=== PATIENT | female | born 1995 | race Caucasian/White ===

== ENCOUNTER 2016-12-07 23:04 | Inpatient (IN) | payer OTHER ==
[~2016-12-07] VITALS: Ht 165.1 cm; Wt 82.6 kg
[2016-12-08] MEDS ORDERED: FERR325C PO (00:10)
[2016-12-08] MEDS ORDERED: PRENAT PO (00:10)
[2016-12-08 00:11] VITALS: Ht 165.1 cm; Wt 82.6 kg
[2016-12-08 00:12] VITALS: BP 125/73; PULSE 86; RESP 18
[2016-12-08] MEDS ORDERED: AMPICILLIN 2 GM/NS (PMX) 100 ML IV ONE (00:30)
[2016-12-08] MEDS ORDERED: MAGNESIUM SULFATE 4 GM/100 ML 100 ML IV ONE (00:30)
--- NOTE | 2016-12-08 01:25 | RADRPT ---
PROCEDURE: US OB. CLINICAL INDICATION: labor. TECHNIQUE: Multiple sonographic images of the pelvis were obtained. Transabdominal imaging only w as performed. The images were reviewed on a PACS workstation. COMPARISON: None. FINDINGS: Single live intrauterine is identified. Cardiac activity is present with 150 beats per mi nute. There is a vertex presentation. Measurements: BPD = 34 weeks 6 days. HC = 34 weeks 5 days. AC = 36 weeks 0 days. FL = 35 weeks 4 days. Estimated gestational age of approximately 35 weeks 2 days. The estimated date of delivery is 01/10/2017. The EFW = 2724 grams/ 6 pounds 0 ounces. The placenta is anterior. IMPRESSION: Single live intrauterine gestation of approximately 35 weeks 2 days. RPTAT: HMVK .Cy Razo MD, Date Time Electronically viewed and signed by .Cy Razo MD, on 12/08/2016 01:25 .K/
[2016-12-08] MEDS: LACTATED RINGER'S 1,000 ML IV SCH ×3 (01:30→20:34)
[2016-12-08 01:54] LABS: BASOPHILS % 0.3 % (0.0-2.0); EOSINOPHILS # 0.1 10^3/ul (0.0-0.5); HEMATOCRIT 33.2 % (37.0-47.0); HEMOGLOBIN 11.3 g/dl (12.0-16.0); LYMPHOCYTES # 2.5 10^3/ul (0.8-2.9); LYMPHOCYTES % 28.3 % (15.0-51.0); MEAN CORPUSCULAR VOLUME 91.2 fl (82.0-101.0); MEAN PLATELET VOLUME 9.4 fl (7.4-10.4); MONOCYTE # 0.6 10^3/ul (0.3-0.9); MONOCYTES % 7.2 % (0.0-11.0); NEUTROPHIL # 5.5 10^3/ul (1.6-7.5); NEUTROPHILS % 62.6 % (39.0-77.0); PLATELET COUNT 267 10^3/UL (140-415); RED BLOOD COUNT 3.64 10^6/ul (4.20-5.40); RED CELL DISTRIBUTION WIDTH 13.2 % (11.5-14.5); WHITE BLOOD COUNT 8.8 10^3/ul (4.8-10.8)
[2016-12-08] MEDS: BETAMET NA PHOS/AC(6 MG/ML) 5ML INJ IM SCH (02:03)
[2016-12-08 02:07] LABS: INR 0.96; PROTIME 12.8 Sec (12.2-14.2)
[2016-12-08 02:08] LABS: PARTIAL THROMBOPLASTIN TIME 30.9 Sec (25.0-35.0)
[2016-12-08] MEDS: MAGNESIUM SULFATE 20 GM/500 ML 500 ML IV SCH ×3 (02:34→20:33)
[2016-12-08] MEDS: AMPICILLIN 1 GM/NS (PMX) 50 ML IV SCH ×5 (05:35→22:12)
--- NOTE | 2016-12-08 06:30 | TRIAGE ---
OB Triage Datetime Report Generated by CPN: 12/08/2016 06:30 Datetime: 12/08/2016 06:06 Pain Assessment Pain Scale: 0 Pain Presence: None/Denies Pain Type: N/A Pain Goal: 0 Datetime: 12/08/2016 06:00 Labor Evaluation Frequency: N/A Monitor Mode: External Resting Tone [place]: Relaxed Contraction Comments: Uterine activity noted Monitor Mode: External US FHR Baseline Changes: No Baseline Change Variability: Moderate 6-25 bpm Accelerations: 15X15 Decelerations: None Category: Category I Datetime: 12/08/2016 05:00 Labor Evaluation Frequency: N/A Monitor Mode: External Resting Tone [place]: Relaxed Interventions: Side to Side Contraction Comments: Uterine activity noted Heart Rate FHR Baseline Rate: 135 Monitor Mode: External US FHR Baseline Changes: No Baseline Change Variability: Moderate 6-25 bpm Accelerations: 10X10 Decelerations: None Category: Category I Comments: Loss of FHR contact d/t pt self-repositioning Datetime: 12/08/2016 04:00 Labor Evaluation Frequency: N/A Monitor Mode: External Resting Tone [place]: Relaxed Contraction Comments: Uterine activity noted. Heart Rate FHR Baseline Rate: 135 Monitor Mode: External US FHR Baseline Changes: No Baseline Change Variability: Moderate 6-25 bpm Accelerations: 10X10 Decelerations: None Category: Category I Datetime: 12/08/2016 03:30 Assessment Type: Admission Assessment Maternal Assessment Level of Consciousness: Fully Conscious DTR's/Clonus: DTRs 2+; No Clonus Headache: Denies Blurred Vision: No Respiratory Effort: Unlabored; Regular Rhythm; Equal Expansion Breath Sounds, Left: Clear and Equal Breath Sounds, Right: Clear and Equal Nausea/Vomiting: Denies RUQ Epigastric Pain: Denies Lower Extremities Edema: None Degree: None Upper Extremities Edema: None Degree: None Facial Edema: None Fall Risk Assessment History of Falling: (0) No Secondary Diagnosis: (0) No Ambulatory Aid: (0) Bedrest/Nurse Assist IV Therapy: (20) Yes Gait: (0) Normal/Bedrest/Immobile Mental Status: (0) Oriented to Own Ability Fall Score: 20 Fall Risk Score Definition: No Risk: No action required Datetime: 12/08/2016 03:28 Temperature Route: Oral Pain Assessment Pain Scale: 0 Pain Presence: None/Denies Pain Type: N/A Pain Goal: 0 Pain Relief Measures: Comfort Measures Datetime: 12/08/2016 03:18 Stage of : OB Triage Labor Evaluation Frequency: x1 Monitor Mode: External Duration (sec)2399: 40 Quality: Mild Pattern: Normal: <= 5 Contractions in 10 Minutes Resting Tone [place]: Relaxed Heart Rate FHR Baseline Rate: 135 Monitor Mode: External US FHR Baseline Changes: No Baseline Change Variability: Moderate 6-25 bpm Accelerations: 15X15 Decelerations: None Category: Category I Datetime: 12/08/2016 03:00 Stage of : OB Triage Labor Evaluation Frequency: Irregular Monitor Mode: External Duration (sec)2399: 40-80 Quality: Mild Pattern: Normal: <= 5 Contractions in 10 Minutes Resting Tone [place]: Relaxed Heart Rate FHR Baseline Rate: 135 Monitor Mode: External US FHR Baseline Changes: No Baseline Change Variability: Moderate 6-25 bpm Accelerations: 15X15 Decelerations: None Category: Category I Datetime: 12/08/2016 02:56 Stage of : Antepartum Datetime: 12/08/2016 02:00 Stage of : OB Triage Labor Evaluation Frequency: 5-11 Monitor Mode: External Duration (sec)2399: 70-130 Quality: Mild Pattern: Normal: <= 5 Contractions in 10 Minutes Resting Tone [place]: Relaxed Heart Rate FHR Baseline Rate: 135 Monitor Mode: External US FHR Baseline Changes: No Baseline Change Variability: Moderate 6-25 bpm Accelerations: 15X15 Decelerations: Variable Category: Category II Datetime: 12/08/2016 01:00 Stage of : OB Triage Labor Evaluation Frequency: 2.5-6 Monitor Mode: External Duration (sec)2399: 40-120 Quality: Mild Pattern: Normal: <= 5 Contractions in 10 Minutes Resting Tone [place]: Relaxed Heart Rate FHR Baseline Rate: 135 Monitor Mode: External US Variability: Moderate 6-25 bpm Accelerations: 15X15 Decelerations: None Category: Category II Datetime: 12/08/2016 00:05 Stage of : OB Triage Datetime: 12/08/2016 00:00 Stage of : OB Triage Labor Evaluation Frequency: x4 Monitor Mode: External Duration (sec)2399: 50-80 Quality: Mild Pattern: Normal: <= 5 Contractions in 10 Minutes Resting Tone [place]: Relaxed Heart Rate FHR Baseline Rate: 150 Monitor Mode: External US Variability: Moderate 6-25 bpm Accelerations: 15X15 Decelerations: Variable Category: Category II Datetime: 12/07/2016 23:34 Stage of : OB Triage Vaginal Exam Dilatation (cms): 4.0 Effacement (%): 60 Station: -3 Exam By: CAREY [place] Membrane Status: Intact Vaginal Bleeding: None Cervix, Consistency: Moderate Cervix, Position: Posterior Presentation 'A': Cephalic Datetime: 12/07/2016 23:26 Time of Arrival: 12/08/2016 03:20 EGA: 35.6 Arrived By: Stretcher Arrived From: Other Unit in Hospital Datetime: 12/07/2016 23:25 Time of Arrival: 12/07/2016 22:59 Arrived By: Ambulatory Arrived From: Home Chief Complaint: UCs _ spotting Movement: Present Contractions: Irregular Time Contractions Began: 12/07/2016 17:00 Contractions: q7-15mins Rupture of Membranes: Denies Vaginal Bleeding: Small Vaginal Discharge: Present Recent Sexual Intercouse: Denies Abdominal Trauma: Not Applicable Patient Complaints: Contractions; Cramping; Back Pain Additional Patient Complaints: Pt reports having been in clinic on Monday. Pt states Dr.Delshad ahn ecked VE 2cm. Pt was instructed to come to hospital if uc's got stronger or pt experienced any bleed ing or leaking of fluid. Time Provider Notified: 12/08/2016 00:07 Provider Notified: Initial Plan: EFM x2, VE Datetime: 12/07/2016 23:24 Stage of : OB Triage Assessment Type: Triage Maternal Assessment Level of Consciousness: Fully Conscious DTR's/Clonus: DTRs 2+; No Clonus Headache: Temporal; Unilateral (Annotations: Right side) Blurred Vision: No Respiratory Effort: Unlabored; Regular Rhythm; Equal Expansion Breath Sounds, Left: Clear and Equal Breath Sounds, Right: Clear and Equal Nausea/Vomiting: Denies RUQ Epigastric Pain: Denies Lower Extremities Edema: None Degree: None Upper Extremities Edema: None Degree: None Facial Edema: None Temperature Route: Oral Fall Risk Assessment History of Falling: (0) No Secondary Diagnosis: (0) No Ambulatory Aid: (0) Bedrest/Nurse Assist IV Therapy: (0) No Gait: (0) Normal/Bedrest/Immobile Mental Status: (0) Oriented to Own Ability Fall Score: 0 Fall Risk Score Definition: No Risk: No action required Pain Assessment Pain Scale: 8 Pain Presence: Intermittent Pain Type: Cramping; Contraction Pain Location: Abdomen; Back Pain Relief Measures: Comfort Measures Datetime: 12/07/2016 23:22 Stage of : OB Triage Labor Evaluation Frequency: [place] applied Monitor Mode: External Monitor Mode: External US Comments: EFM applied Datetime: 12/07/2016 20:30 Stage of : Labor
[2016-12-08] MEDS ORDERED: PRENATAL VITAMIN PO SCH (09:00)
[2016-12-08] MEDS ORDERED: FERROUS SULFATE (EC) 325 MG TAB PO SCH (09:00)
[2016-12-09] MEDS: BETAMET NA PHOS/AC(6 MG/ML) 5ML INJ IM SCH (01:03)
== END 2016-12-09 01:39 | disposition left against medical advice (07) | DRG 778 ==
LOC: OBT 23:04 → L-D 23:05 → OBT 12-08 00:07 → L-D 12-08 00:07
PROVIDERS: ADMIT Obstetrics & Gynecology; ATTEND Obstetrics & Gynecology
DX: O60.03 Preterm labor without delivery, third trimester (principal); Z3A.35 35 weeks gestation of pregnancy
CPT/HCPCS: 36415; 76815; 83735; 85025; 85610; 85730; 86592; 86900; 86901; 87340; G0463; J0290; J0702; J3475; J7120

== ENCOUNTER 2016-12-30 22:23 | Outpatient (CLI) | payer OTHER ==
[~2016-12-30 22:23] MED LIST: FERR325C PO; PRENAT PO
--- NOTE | 2016-12-31 03:03 | TRIAGE ---
OB Triage Datetime Report Generated by CPN: 12/31/2016 03:02 Datetime: 12/31/2016 00:08 Heart Rate FHR Baseline Rate: 135 Monitor Mode: External US FHR Baseline Changes: No Baseline Change Variability: Moderate 6-25 bpm Accelerations: 15X15 Decelerations: Variable Category: Category II Datetime: 12/30/2016 23:50 Stage of : OB Triage Datetime: 12/30/2016 23:35 Stage of : OB Triage Datetime: 12/30/2016 23:07 Stage of : OB Triage Labor Evaluation Frequency: 3-9 Monitor Mode: External Quality: Moderate Pattern: Normal: <= 5 Contractions in 10 Minutes Resting Tone [place]: Relaxed Heart Rate FHR Baseline Rate: 130 Monitor Mode: External US Variability: Moderate 6-25 bpm Accelerations: 15X15 Decelerations: Early; Variable Category: Category II Vaginal Exam Dilatation (cms): 4.5 Effacement (%): 60 Station: -3 Exam By: Livan Garcia Membrane Status: Intact Vaginal Bleeding: None Cervix, Consistency: Soft Cervix, Position: Posterior Presentation 'A': Cephalic Datetime: 12/30/2016 22:34 Time of Arrival: 12/30/2016 22:20 EGA: 39.0 Arrived By: Ambulatory Arrived From: Home Chief Complaint: c/o ucs Movement: Present Contractions: Irregular Contractions: Q20 Rupture of Membranes: Denies Vaginal Bleeding: None Vaginal Discharge: Denies Recent Sexual Intercouse: Denies Abdominal Trauma: Not Applicable Patient Complaints: Contractions; Back Pain Time Provider Notified: 12/30/2016 23:35 Provider Notified: dR Pennington Initial Plan: EFM,SVE Datetime: 12/30/2016 22:32 Stage of : OB Triage Maternal Assessment Level of Consciousness: Fully Conscious Headache: Denies Blurred Vision: No Respiratory Effort: Unlabored Nausea/Vomiting: Denies RUQ Epigastric Pain: Denies Facial Edema: None Labor Evaluation Frequency: placed Monitor Mode: External Resting Tone [place]: Relaxed Monitor Mode: External US Comments: [id number] Pain Assessment Pain Scale: 10 Pain Presence: Intermittent Pain Type: Cramping Pain Location: Abdomen Datetime: 12/09/2016 01:39 Stage of : Antepartum Datetime: 12/09/2016 01:10 Assessment Type: Ongoing Assessment Datetime: 12/09/2016 01:00 Stage of : Antepartum Maternal Assessment Level of Consciousness: Fully Conscious DTR's/Clonus: DTRs 2+; No Clonus Headache: Denies Breath Sounds, Left: Clear and Equal Breath Sounds, Right: Clear and Equal Nausea/Vomiting: Denies RUQ Epigastric Pain: Denies Labor Evaluation Frequency: X0 Monitor Mode: External Duration (sec)2399: X0 Pattern: Normal: <= 5 Contractions in 10 Minutes Resting Tone [place]: Relaxed Heart Rate FHR Baseline Rate: 135 Monitor Mode: External US Variability: Moderate 6-25 bpm Accelerations: 15X15 Decelerations: None Category: Category I Pain Assessment Pain Scale: 0 Pain Presence: None/Denies Pain Type: N/A Datetime: 12/09/2016 00:00 Stage of : Antepartum Maternal Assessment Level of Consciousness: Fully Conscious DTR's/Clonus: DTRs 2+; No Clonus Headache: Denies Breath Sounds, Left: Clear and Equal Breath Sounds, Right: Clear and Equal Nausea/Vomiting: Denies RUQ Epigastric Pain: Denies Temperature Route: Oral Labor Evaluation Frequency: X0 Monitor Mode: External Duration (sec)2399: X0 Pattern: Normal: <= 5 Contractions in 10 Minutes Resting Tone [place]: Relaxed Heart Rate FHR Baseline Rate: 135 Monitor Mode: External US Variability: Moderate 6-25 bpm Accelerations: 15X15 Decelerations: None Category: Category I Pain Assessment Pain Scale: 0 Pain Presence: None/Denies Pain Type: N/A Datetime: 12/08/2016 23:34 Stage of : Antepartum Datetime: 12/08/2016 23:00 Stage of : Antepartum Labor Evaluation Frequency: x1 Monitor Mode: External Duration (sec)2399: 30 Pattern: Normal: <= 5 Contractions in 10 Minutes Resting Tone [place]: Relaxed Heart Rate FHR Baseline Rate: 130 Monitor Mode: External US Variability: Moderate 6-25 bpm Accelerations: 15X15 Decelerations: None Category: Category I Datetime: 12/08/2016 22:58 Monitor Mode: External Monitor Mode: External US Datetime: 12/08/2016 22:00 Stage of : Antepartum Maternal Assessment Level of Consciousness: Fully Conscious DTR's/Clonus: DTRs 2+; No Clonus Headache: Denies Breath Sounds, Left: Clear and Equal Breath Sounds, Right: Clear and Equal Nausea/Vomiting: Denies RUQ Epigastric Pain: Denies Labor Evaluation Frequency: X2 Monitor Mode: External Duration (sec)2399: 30-40 Pattern: Normal: <= 5 Contractions in 10 Minutes Heart Rate FHR Baseline Rate: 135 Monitor Mode: External US FHR Baseline Changes: No Baseline Change Variability: Moderate 6-25 bpm Accelerations: 15X15 Decelerations: None Category: Category I Datetime: 12/08/2016 21:00 Stage of : Antepartum Labor Evaluation Frequency: IRREGULAR Monitor Mode: External Duration (sec)2399: 30-40 Pattern: Normal: <= 5 Contractions in 10 Minutes Contraction Comments: MILD IRRITABILITY NOTED Heart Rate FHR Baseline Rate: 135 Monitor Mode: External US Variability: Moderate 6-25 bpm Accelerations: 15X15 Decelerations: None Category: Category I Datetime: 12/08/2016 20:12 Stage of : Antepartum Assessment Type: Ongoing Assessment Maternal Assessment Level of Consciousness: Fully Conscious DTR's/Clonus: DTRs 2+; No Clonus Headache: Denies Blurred Vision: No Respiratory Effort: Unlabored; Regular Rhythm; Equal Expansion Breath Sounds, Left: Clear and Equal Breath Sounds, Right: Clear and Equal Nausea/Vomiting: Denies RUQ Epigastric Pain: Denies Lower Extremities Edema: None Degree: None Upper Extremities Edema: None Degree: None Facial Edema: None Temperature Route: Oral Fall Risk Assessment History of Falling: (0) No Secondary Diagnosis: (0) No Ambulatory Aid: (0) Bedrest/Nurse Assist IV Therapy: (20) Yes (Annotations: IV INFUSING LR @75ML/HR AND 2 GRAMS MAGNESIUM SULFATE @50ML/HR) Gait: (0) Normal/Bedrest/Immobile Mental Status: (0) Oriented to Own Ability Fall Score: 20 Fall Risk Score Definition: No Risk: No action required Pain Assessment Pain Scale: 0 Pain Presence: None/Denies Pain Type: N/A Datetime: 12/08/2016 20:01 Stage of : Antepartum Labor Evaluation Frequency: IRREGULAR Monitor Mode: External Duration (sec)2399: 30-60 Pattern: Normal: <= 5 Contractions in 10 Minutes Contraction Comments: ABDOMEN SOFT ON PALPATION. IRRITABILITY NOTED Comments: LOC; PT MONITOR ADJUSTED Datetime: 12/08/2016 20:00 Monitor Mode: External Monitor Mode: External US Datetime: 12/08/2016 19:00 Labor Evaluation Frequency: 0 Monitor Mode: Internal Duration (sec)2399: 0 Pattern: Normal: <= 5 Contractions in 10 Minutes Resting Tone [place]: Relaxed Contraction Comments: DENIES FEELING ANY UC'S Heart Rate FHR Baseline Rate: 135 Monitor Mode: External US FHR Baseline Changes: No Baseline Change Variability: Moderate 6-25 bpm Accelerations: 15X15 Decelerations: None Category: Category I Datetime: 12/08/2016 18:29 Labor Evaluation Frequency: 0 Monitor Mode: External Duration (sec)2399: 0 Pattern: Normal: <= 5 Contractions in 10 Minutes Resting Tone [place]: Relaxed Heart Rate FHR Baseline Rate: 130 Monitor Mode: External US FHR Baseline Changes: No Baseline Change Variability: Moderate 6-25 bpm Accelerations: 15X15 Decelerations: None Category: Category I Datetime: 12/08/2016 18:00 Maternal Assessment Level of Consciousness: Fully Conscious DTR's/Clonus: DTRs 2+; No Clonus Headache: Denies Blurred Vision: No Nausea/Vomiting: Denies RUQ Epigastric Pain: Denies Facial Edema: None Labor Evaluation Frequency: 0 Monitor Mode: External Duration (sec)2399: 0 Pattern: Normal: <= 5 Contractions in 10 Minutes Resting Tone [place]: Relaxed Contraction Comments: DENIES FEELING ANY UC'S Heart Rate FHR Baseline Rate: 130 Monitor Mode: External US FHR Baseline Changes: No Baseline Change Variability: Moderate 6-25 bpm Accelerations: 15X15 Decelerations: None Category: Category I Pain Assessment Pain Scale: 0 Pain Presence: None/Denies Pain Type: N/A Datetime: 12/08/2016 17:02 Heart Rate FHR Baseline Rate: 135 Monitor Mode: External US FHR Baseline Changes: No Baseline Change Variability: Moderate 6-25 bpm Accelerations: 15X15 Decelerations: None Category: Category I Datetime: 12/08/2016 16:30 Labor Evaluation Frequency: 0 Monitor Mode: External Duration (sec)2399: 0 Pattern: Normal: <= 5 Contractions in 10 Minutes Resting Tone [place]: Relaxed Heart Rate FHR Baseline Rate: 135 Monitor Mode: External US FHR Baseline Changes: No Baseline Change Variability: Moderate 6-25 bpm Accelerations: 15X15 Decelerations: None Category: Category I Datetime: 12/08/2016 16:03 Labor Evaluation Frequency: 0 Monitor Mode: External Duration (sec)2399: 0 Pattern: Normal: <= 5 Contractions in 10 Minutes Resting Tone [place]: Relaxed Heart Rate FHR Baseline Rate: 135 Monitor Mode: External US FHR Baseline Changes: No Baseline Change Variability: Moderate 6-25 bpm Accelerations: 15X15 Decelerations: None Category: Category I Datetime: 12/08/2016 15:30 Labor Evaluation Frequency: 0 Monitor Mode: External Duration (sec)2399: 0 Pattern: Normal: <= 5 Contractions in 10 Minutes Resting Tone [place]: Relaxed Heart Rate FHR Baseline Rate: 135 Monitor Mode: External US FHR Baseline Changes: No Baseline Change Variability: Moderate 6-25 bpm Accelerations: 15X15 Decelerations: None Category: Category I Datetime: 12/08/2016 15:00 Maternal Assessment Level of Consciousness: Fully Conscious DTR's/Clonus: DTRs 2+; No Clonus Headache: Denies Blurred Vision: No Respiratory Effort: Unlabored Breath Sounds, Left: Clear and Equal Breath Sounds, Right: Clear and Equal Nausea/Vomiting: Denies RUQ Epigastric Pain: Denies Facial Edema: None Labor Evaluation Frequency: ONE NOTED Monitor Mode: External Duration (sec)2399: 50 Pattern: Normal: <= 5 Contractions in 10 Minutes Resting Tone [place]: Relaxed Heart Rate FHR Baseline Rate: 130 Monitor Mode: External US FHR Baseline Changes: No Baseline Change Variability: Moderate 6-25 bpm Accelerations: 15X15 Decelerations: None Category: Category I Datetime: 12/08/2016 13:57 Labor Evaluation Frequency: 0 Monitor Mode: External Duration (sec)2399: 0 Pattern: Normal: <= 5 Contractions in 10 Minutes Contraction Comments: PT DENIES FEELING ANY DISCOMFORT. SOME SCATTERED IRRITABILITY NOTED Comments: PT SITTING UP IN BED EATING LUNCH. Datetime: 12/08/2016 13:27 Labor Evaluation Frequency: 0 Monitor Mode: External Duration (sec)2399: 0 Pattern: Normal: <= 5 Contractions in 10 Minutes Resting Tone [place]: Relaxed Heart Rate FHR Baseline Rate: 130 Monitor Mode: External US FHR Baseline Changes: No Baseline Change Variability: Moderate 6-25 bpm Accelerations: 15X15 Decelerations: None Category: Category I Datetime: 12/08/2016 12:28 Labor Evaluation Frequency: 0 Duration (sec)2399: 0 Pattern: Normal: <= 5 Contractions in 10 Minutes Resting Tone [place]: Relaxed Heart Rate FHR Baseline Rate: 130 Monitor Mode: External US FHR Baseline Changes: Bradycardia Comments: PT STILL SLEEPING. Datetime: 12/08/2016 12:00 Labor Evaluation Frequency: 0 Monitor Mode: External Duration (sec)2399: 0 Heart Rate FHR Baseline Rate: 130 FHR Baseline Changes: No Baseline Change Comments: PT STILL ON LEFT SIDE SLEEPING Datetime: 12/08/2016 11:27 Labor Evaluation Frequency: 0 Monitor Mode: External Duration (sec)2399: 0 Pattern: Normal: <= 5 Contractions in 10 Minutes Resting Tone [place]: Relaxed Contraction Comments: DENIES FEELING ANY UC'S Heart Rate FHR Baseline Rate: 130 Monitor Mode: External US FHR Baseline Changes: No Baseline Change Variability: Moderate 6-25 bpm Accelerations: 15X15 Decelerations: None Category: Category I Comments: PT ON LEFT SIDE. 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 Datetime: 12/08/2016 10:59 Labor Evaluation Frequency: 0 Monitor Mode: External Duration (sec)2399: 0 Pattern: Normal: <= 5 Contractions in 10 Minutes Resting Tone [place]: Relaxed Contraction Comments: DENIES FEELING ANY UC'S Heart Rate FHR Baseline Rate: 130 Monitor Mode: External US FHR Baseline Changes: No Baseline Change Variability: Moderate 6-25 bpm Accelerations: 15X15 Decelerations: None Category: Category I Datetime: 12/08/2016 10:29 Labor Evaluation Frequency: 0 Monitor Mode: External Duration (sec)2399: 0 Pattern: Normal: <= 5 Contractions in 10 Minutes Resting Tone [place]: Relaxed Heart Rate FHR Baseline Rate: 130 Monitor Mode: External US FHR Baseline Changes: No Baseline Change Variability: Moderate 6-25 bpm Accelerations: 15X15 Decelerations: None Category: Category I Datetime: 12/08/2016 10:00 Maternal Assessment Level of Consciousness: Fully Conscious DTR's/Clonus: DTRs 2+; No Clonus Headache: Denies Blurred Vision: No Nausea/Vomiting: Denies RUQ Epigastric Pain: Denies Facial Edema: None Labor Evaluation Frequency: 0 Monitor Mode: External Pattern: Normal: <= 5 Contractions in 10 Minutes Intensity IUP (mmHg): 0 Resting Tone [place]: Relaxed Heart Rate FHR Baseline Rate: 130 Monitor Mode: External US FHR Baseline Changes: No Baseline Change Variability: Moderate 6-25 bpm Accelerations: 15X15 Decelerations: None Category: Category I Comments: SCATTERED CONTACT AT TIMES. PT IS STITTING UP EATING Datetime: 12/08/2016 09:30 Labor Evaluation Frequency: 0 Monitor Mode: External Duration (sec)2399: 0 Pattern: Normal: <= 5 Contractions in 10 Minutes Resting Tone [place]: Relaxed Heart Rate FHR Baseline Rate: 130 Monitor Mode: External US FHR Baseline Changes: No Baseline Change Variability: Moderate 6-25 bpm Accelerations: 15X15 Decelerations: None Category: Category I Datetime: 12/08/2016 09:01 Maternal Assessment Level of Consciousness: Fully Conscious DTR's/Clonus: DTRs 2+; No Clonus Headache: Denies Blurred Vision: No Nausea/Vomiting: Denies Facial Edema: None Labor Evaluation Frequency: 2 NOTED Monitor Mode: External Duration (sec)2399: 60-80 Pattern: Normal: <= 5 Contractions in 10 Minutes Resting Tone [place]: Relaxed Contraction Comments: DENIES FEELING ANY UC'S Heart Rate FHR Baseline Rate: 140 Monitor Mode: External US FHR Baseline Changes: No Baseline Change Variability: Moderate 6-25 bpm Accelerations: 15X15 Decelerations: None Category: Category I Datetime: 12/08/2016 08:30 Labor Evaluation Frequency: 0 Monitor Mode: External Duration (sec)2399: 0 Pattern: Normal: <= 5 Contractions in 10 Minutes Resting Tone [place]: Relaxed Contraction Comments: DENIES FEELING ANY UC'S Heart Rate FHR Baseline Rate: 140 Monitor Mode: External US FHR Baseline Changes: No Baseline Change Accelerations: 15X15 Decelerations: None Category: Category I Datetime: 12/08/2016 07:59 Labor Evaluation Frequency: 0 Monitor Mode: External Duration (sec)2399: 0 Resting Tone [place]: Relaxed Contraction Comments: DENIES FEELING ANY UC'S. ABODMEN SOFT TO PALPATION Heart Rate FHR Baseline Rate: 135 FHR Baseline Changes: No Baseline Change Variability: Moderate 6-25 bpm Accelerations: 15X15 Decelerations: None Category: Category I Pain Assessment Pain Scale: 0 Pain Presence: None/Denies Pain Type: N/A Pain Goal: 0 Datetime: 12/08/2016 07:56 Assessment Type: Ongoing Assessment Maternal Assessment Level of Consciousness: Fully Conscious DTR's/Clonus: DTRs 2+; No Clonus Headache: Denies Blurred Vision: No Respiratory Effort: Unlabored; Regular Rhythm; Equal Expansion Breath Sounds, Left: Clear and Equal Breath Sounds, Right: Clear and Equal Nausea/Vomiting: Denies RUQ Epigastric Pain: Denies Lower Extremities Edema: None Degree: None Upper Extremities Edema: None Degree: None Facial Edema: None Fall Risk Assessment History of Falling: (0) No Secondary Diagnosis: (0) No Ambulatory Aid: (0) Bedrest/Nurse Assist IV Therapy: (20) Yes Gait: (0) Normal/Bedrest/Immobile Mental Status: (0) Oriented to Own Ability Fall Score: 20 Fall Risk Score Definition: No Risk: No action required Datetime: 12/08/2016 07:00 Labor Evaluation Frequency: N/A Monitor Mode: External Resting Tone [place]: Relaxed Contraction Comments: Uterine activity noted Heart Rate FHR Baseline Rate: 135 Monitor Mode: External US FHR Baseline Changes: No Baseline Change Variability: Moderate 6-25 bpm Accelerations: 15X15 Decelerations: None Datetime: 12/08/2016 06:19 Comments: Periods of loss of FHR contact d/t pt self repositioning Datetime: 12/08/2016 06:00 Heart Rate FHR Baseline Rate: 135 Datetime: 12/08/2016 05:27 Pain Assessment Pain Scale: 0 Pain Presence: None/Denies Pain Type: N/A Pain Goal: 0 Datetime: 12/08/2016 04:27 Pain Assessment Pain Scale: 0 Pain Presence: None/Denies Pain Type: N/A Pain Goal: 0 Pain Assessment Comments: Pt states she feels occasional sharp pain d/t positioning. Pt instructed to inform RN if pain reoccurs, pt verbalized understanding Datetime: 12/08/2016 03:30 Fall Score: 20 Fall Risk Score Definition: No Risk: No action required Datetime: 12/08/2016 02:39 Heart Rate FHR Baseline Rate: 140 Datetime: 12/07/2016 23:26 EGA: 35.6 Datetime: 12/07/2016 23:24 Fall Score: 0 Fall Risk Score Definition: No Risk: No action required
--- NOTE | 2017-01-25 20:13 | QN ---
Documentation Comment Date of Service 12/31/2016 Diagnosis: TRU Norman MD Jan 25, 2017 20:13
== END 2016-12-31 00:21 | disposition left against medical advice (07) ==
LOC: OBT 22:23 → L-D 22:24 → OBT 12-31 00:21
PROVIDERS: ATTEND Obstetrics & Gynecology
DX: O62.9 Abnormality of forces of labor, unspecified (principal); Z3A.35 35 weeks gestation of pregnancy
CPT/HCPCS: G0463

== ENCOUNTER 2017-01-01 05:36 | Inpatient (IN) | payer OTHER ==
[~2017-01-01] VITALS: Ht 165.1 cm; Wt 84.9 kg
[2017-01-01 05:47] VITALS: BP 119/74; PULSE 76; RESP 18
[2017-01-01] MEDS ORDERED: BUTORPHANOL 2 MG INJ IV PRN (06:30)
[2017-01-01] MEDS ORDERED: METHYLERGONOVINE 0.2 MG INJ IM PRN ×2 (06:30→18:30)
[2017-01-01] MEDS ORDERED: OXYTOCIN 30 UNITS/LR 500 ML IV PRN ×2 (06:30→18:30)
[2017-01-01] MEDS ORDERED: MISOPROSTOL 200 MCG TAB PR PRN ×2 (06:30→18:30)
[2017-01-01] MEDS ORDERED: IBUPROFEN 600 MG TAB PO PRN (06:30)
[2017-01-01] MEDS ORDERED: CARBOPROST 250 MCG INJ IM PRN ×2 (06:30→18:30)
[2017-01-01] MEDS ORDERED: OXYTOCIN 30 UNITS/LR 500 ML IV SCH ×3 (06:30→07:00)
[2017-01-01] MEDS ORDERED: LIDOCAINE 1% (MPF) 30 ML INJ INJ PRN (06:30)
--- NOTE | 2017-01-01 06:42 | TRIAGE ---
OB Triage Datetime Report Generated by CPN: 01/01/2017 06:42 Datetime: 01/01/2017 06:20 Stage of : OB Triage Datetime: 01/01/2017 06:17 Frequency: 20 Monitor Mode: External Quality: Moderate Pattern: Normal: <= 5 Contractions in 10 Minutes Resting Tone [place]: Relaxed FHR Baseline Rate: 140 Monitor Mode: External US Variability: Moderate 6-25 bpm Accelerations: 10X10 Decelerations: Variable Category: Category II Dilatation (cms): 5.0 Effacement (%): 50 Station: -3 Exam By: Livan Garcia Membrane Status: Intact Vaginal Bleeding: Scant Cervix, Consistency: Soft Cervix, Position: Posterior Presentation 'A': Cephalic Datetime: 01/01/2017 05:45 Time of Arrival: 01/01/2017 05:35 EGA: 39.2 Arrived By: Ambulatory Arrived From: Home Chief Complaint: c/o ucs Movement: Present Contractions: Regular Time Contractions Began: 01/01/2017 00:00 Contractions: q20 Rupture of Membranes: Denies Vaginal Bleeding: None Vaginal Discharge: Denies Recent Sexual Intercouse: Denies Abdominal Trauma: Not Applicable Patient Complaints: Contractions Time Provider Notified: 01/01/2017 06:32 Provider Notified: Dr Flaherty Initial Plan: EFM,SVE Datetime: 01/01/2017 05:42 Stage of : OB Triage Level of Consciousness: Fully Conscious Headache: Denies Blurred Vision: No Respiratory Effort: Unlabored Nausea/Vomiting: Denies RUQ Epigastric Pain: Denies Facial Edema: None Frequency: placed Monitor Mode: External Resting Tone [place]: Relaxed Monitor Mode: External US Comments: FHT 135 Pain Scale: 9 Pain Presence: Intermittent Pain Type: Contraction Pain Location: Abdomen Datetime: 12/30/2016 22:34 EGA: 39.0 Datetime: 12/08/2016 20:12 Fall Score: 20 Fall Risk Score Definition: No Risk: No action required Datetime: 12/08/2016 07:56 Fall Score: 20 Fall Risk Score Definition: No Risk: No action required Datetime: 12/08/2016 03:30 Fall Score: 20 Fall Risk Score Definition: No Risk: No action required Datetime: 12/07/2016 23:26 EGA: 35.6
[2017-01-01] MEDS: LACTATED RINGER'S 1,000 ML IV SCH ×2 (06:59→12:04)
[2017-01-01 07:20] LABS: BASOPHILS % 0.4 % (0.0-2.0); EOSINOPHILS # 0.1 10^3/ul (0.0-0.5); EOSINOPHILS % 1.8 % (0.0-7.0); HEMATOCRIT 36.8 % (37.0-47.0); HEMOGLOBIN 12.3 g/dl (12.0-16.0); LYMPHOCYTES # 2.3 10^3/ul (0.8-2.9); LYMPHOCYTES % 34.5 % (15.0-51.0); MEAN CORPUSCULAR HEMOGLOBIN 31.5 pg (29.0-33.0); MEAN CORPUSCULAR HGB CONC 33.4 g/dl (32.0-37.0); MEAN CORPUSCULAR VOLUME 94.4 fl (82.0-101.0); MEAN PLATELET VOLUME 9.7 fl (7.4-10.4); MONOCYTE # 0.4 10^3/ul (0.3-0.9); MONOCYTES % 6.5 % (0.0-11.0); NEUTROPHIL # 3.8 10^3/ul (1.6-7.5); NEUTROPHILS % 56.2 % (39.0-77.0); PLATELET COUNT 269 10^3/UL (140-415); RED CELL DISTRIBUTION WIDTH 13.3 % (11.5-14.5); WHITE BLOOD COUNT 6.8 10^3/ul (4.8-10.8)
[2017-01-01 07:42] LABS: INR 0.89; PT RATIO 0.9
[2017-01-01 07:43] LABS: PARTIAL THROMBOPLASTIN TIME 32.3 Sec (25.0-35.0)
[2017-01-01] MEDS ORDERED: LACTATED RINGER'S 1,000 ML IV PRN (08:00)
[2017-01-01] MEDS ORDERED: FENTAnyl 2MCG/ML-ROPIV 0.2% 100 ML ONE (12:19)
--- NOTE | 2017-01-01 14:04 | HP ---
Date/Time of Note Date/Time of Note DATE: 01/01/17 TIME: 14:03 OB - History Hx of Present Chief Complaint: contractions Estimated Due Date: Jan 06, 2017 : 2 Para: 1 Spontaneous : 0 Therapeutic : 0 Care: Good Care Ultrasounds: Normal mid trimester US Obstetrical Complications: None Medical Complications: None Past Family/Social History * Past Medical, Surgical, Family and Obstetric Histories reviewed from chart. GBS Status: Negative OB Admission Exam Vital Signs Vital Signs Vital Signs Date Time Temp Pulse Resp B/P Pulse Ox O2 Delivery O2 Flow Rate FiO2 01/01/17 05:47 97.7 76 18 119/74 Room Air Physical Exam HEENT: WNL Heart: Rhythm Normal Lungs: Clear, Equal Abdomen: WNL Extremities: Normal Reflexes: Normal Cervical Dilatation: 5cm Effacement: 50% Station: -1 Membranes: Intact Heart Rate: 130's Accelerations: Accelerations Present Decelerations: No Decelerations Varibility: Moderate Last 72 hours Lab Results CBC & BMP 01/01/17 06:43 OB Assessment/Plan Reason for admission: active labor Plan: Expectant Management TRU CLEARY MD Jan 01, 2017 14:04
--- NOTE | 2017-01-01 14:07 | LDN ---
Date/Time of Note Date/Time of Note DATE: 01/01/17 TIME: 14:05 Delivery Summary Weeks of Gestation 39 weeks and 2 days Placenta Delivered: Spontaneously Meconium: none Episiotomy: No Perineal laceration: 0 Anesthesia type: Epidural Estimated blood loss: 100 Sponge & Needle done & correct: Yes All needle counts correct: Yes Any foreign bodies felt in the: No Problems: Infant Delivery Information Sex Sex: female Apgars 1 Minute: 9 5 Minute: 9 Suctioning Nose & mouth suctioned at jamie: Yes Delee suction performed: No Umbilical Cord Umbilical cord with: 3 Vessels Cord presentations: nuchal cord Nuchal cord present X: 1 Cord Blood was obtained: Yes Mother & Baby Disposition Disposition Mom & Baby to Maternity; Good: Yes TRU CLEARY MD Jan 01, 2017 14:06
[2017-01-01 18:00] VITALS: BP 114/63; PULSE 84; RESP 18
[2017-01-01] MEDS ORDERED: DIBUCAINE 1% 30 GM OINT PR PRN (18:30)
[2017-01-01] MEDS ORDERED: HYDROCODONE/APAP (5/325) TAB PO PRN (18:30)
[2017-01-01] MEDS ORDERED: WITCH HAZEL/GLYCERIN PAD PR PRN (18:30)
[2017-01-01] MEDS ORDERED: ACETAMINOPHEN 325 MG TAB PO PRN (18:30)
[2017-01-01] MEDS ORDERED: BENZOCAINE 20% 56 ML SPRAY TOP PRN (18:30)
[2017-01-01] MEDS ORDERED: LANOLIN 7 GM TUBE TOP PRN (18:30)
[2017-01-01 20:30] VITALS: BP 113/77; PULSE 67; RESP 16
[2017-01-01] MEDS: SENNA/DOCUSATE NA (8.6MG/50MG) TAB PO SCH (20:43)
[2017-01-01] MEDS ORDERED: INFLUENZA VIRUS VACCINE 0.5 ML SYG IM* ONE (21:30)
[2017-01-01] MEDS: LACTATED RINGER'S 1,000 ML IV* SCH (23:03)
[2017-01-02] MEDS: IBUPROFEN 600 MG TAB PO SCH ×4 (00:15→17:54)
[2017-01-02 00:32] VITALS: BP 112/78; PULSE 74; RESP 18
[2017-01-02] MEDS: LACTATED RINGER'S 1,000 ML IV* SCH ×3 (02:12→10:12)
[2017-01-02 04:00] VITALS: BP 116/76; PULSE 75; RESP 18
[2017-01-02] MEDS: SENNA/DOCUSATE NA (8.6MG/50MG) TAB PO SCH ×2 (08:50→20:59)
[2017-01-02 09:00] VITALS: BP 122/84; PULSE 74; RESP 17
[2017-01-02 10:31] LABS: BASOPHILS % 0.4 % (0.0-2.0); EOSINOPHILS # 0.1 10^3/ul (0.0-0.5); EOSINOPHILS % 1.3 % (0.0-7.0); HEMATOCRIT 37.8 % (37.0-47.0); HEMOGLOBIN 12.5 g/dl (12.0-16.0); LYMPHOCYTES % 19.6 % (15.0-51.0); MEAN CORPUSCULAR HEMOGLOBIN 31.3 pg (29.0-33.0); MEAN CORPUSCULAR HGB CONC 33.1 g/dl (32.0-37.0); MEAN CORPUSCULAR VOLUME 94.7 fl (82.0-101.0); MEAN PLATELET VOLUME 9.6 fl (7.4-10.4); MONOCYTE # 0.7 10^3/ul (0.3-0.9); NEUTROPHIL # 7.1 10^3/ul (1.6-7.5); NEUTROPHILS % 71.2 % (39.0-77.0); PLATELET COUNT 268 10^3/UL (140-415); RED BLOOD COUNT 3.99 10^6/ul (4.20-5.40); RED CELL DISTRIBUTION WIDTH 13.5 % (11.5-14.5)
[2017-01-02 12:00] VITALS: BP 107/69; PULSE 66; RESP 18
[2017-01-02 16:02] VITALS: BP 120/66; PULSE 62; RESP 16
--- NOTE | 2017-01-02 18:49 | DS ---
Date/Time of Note Date/Time of Note DATE: 01/02/17 TIME: 18:48 Obstetrical Discharge Record Final Diagnosis Final Diagnosis: Term delivered Vaginal Delivery Obstetrical Delivery: Spontaneous Condition on Discharge Physical Assessment Voiding: Yes Bowel Movement: Yes Breast: Soft, non-tender, Filling Fundus: Firm Calf Tenderness: No Patient Condition: Stable TRU CLEARY MD Jan 02, 2017 18:49
[2017-01-02 20:30] VITALS: BP 118/76; PULSE 60
[2017-01-03] MEDS: IBUPROFEN 600 MG TAB PO SCH ×2 (01:10→06:00)
[2017-01-03] MEDS: LACTATED RINGER'S 1,000 ML IV* SCH ×2 (02:12→10:12)
[2017-01-03 04:30] VITALS: BP 130/79; PULSE 90; RESP 16
[2017-01-03 08:45] VITALS: BP 118/80; PULSE 79; RESP 17
[2017-01-03] MEDS ORDERED: DIPHTH/TET/ACEL PERTUSS (ADULT) 0.5 ML VIAL IM* ONE (09:00)
[2017-01-03] MEDS: SENNA/DOCUSATE NA (8.6MG/50MG) TAB PO SCH (09:00)
== END 2017-01-03 12:02 | disposition home or self-care (01) | DRG 775 ==
LOC: OBT 05:36 → L-D 05:37 → OBT 06:20 → L-D 06:20 → PP1 17:52
PROVIDERS: ADMIT Obstetrics & Gynecology; ATTEND Obstetrics & Gynecology
PROC: 10E0XZZ Delivery of Products of Conception, External Approach (ICD-10-PCS; principal; 2017-01-01)
PROC: 3E0P3VZ Introduction of Hormone into Female Reproductive, Percutaneous Approach (ICD-10-PCS; 2017-01-01)
DX: O69.81X0 Labor and delivery complicated by cord around neck, without compression, not applicable or unspecified (principal); Z37.0 Single live birth; Z3A.39 39 weeks gestation of pregnancy
CPT/HCPCS: 62319; 85025; 85610; 85730; 86592; 86900; 86901; 90686; 90715; 99464; G0463; J0595; J2590; J3010; J7120